=== PATIENT | female | born 1990 | race Two or more races ===

== ENCOUNTER 2018-07-02 10:59 | Emergency (ER) | payer OTHER ==
[2018-07-02] MEDS ORDERED: Acetaminophen 325 MG TAB ONE (13:18)
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
== END 2018-07-02 13:06 | disposition home or self-care (01) ==
LOC: ERS 10:59
DX: S16.1XXA Strain of muscle, fascia and tendon at neck level, initial encounter (principal); V43.52XA Car driver injured in collision with other type car in traffic accident, initial encounter
CPT/HCPCS: 72125